=== PATIENT | female | born 1995 | race Caucasian/White ===

== ENCOUNTER 2022-10-15 00:06 | Emergency (ER) | payer OTHER, SELFPAY ==
[2022-10-15 00:20] VITALS: BP 167/115; PULSE 94; RESP 16; TEMP 36.7; O2SAT 100; BMI 28.8
[2022-10-15 01:03] LABS: Basophils Percent Auto 0.4 % (0.2-2.0); Eosinophils Absolute Auto 0.3 10^3/uL (0.0-0.7); Eosinophils Percent Auto 3.6 % (0.9-7.0); Hemoglobin 11.5 g/dL (12.0-16.0); Immature Granulocytes Abs Auto 0.02 10^3/uL (0.00-0.03); Immature Granulocytes Pct Auto 0.2 % (0.0-0.5); Lymphocytes Absolute Auto 2.6 10^3/uL (1.2-3.8); Mean Corpuscular HGB Conc 32.9 g/dL (29.9-35.2); Mean Corpuscular Hemoglobin 29.2 pg (26.7-34.0); Mean Corpuscular Volume 88.8 fL (81.0-99.0); Monocytes Absolute Auto 0.7 10^3/uL (0.3-0.8); Monocytes Percent Auto 8.6 % (1.7-12.0); Neutrophils Absolute Auto 4.7 10^3/uL (1.4-6.5); Neutrophils Percent Auto 56.2 % (43.0-75.0); Platelet Count 318 10^3/uL (150-450); Red Blood Count 3.94 10^6/uL (4.20-5.40); Red Cell Distribution Width 12.6 % (11.0-15.0); White Blood Count 8.4 10^3/uL (4.0-11.0)
[2022-10-15 01:16] LABS: Alanine Aminotransferase 59 U/L (14-59); Albumin Level 3.6 g/dL (3.4-5.0); Alkaline Phosphatase 86 U/L (46-116); Anion Gap 9.5; Aspartate Amino Transferase 14 U/L (15-37); BUN Creatinine Ratio 8.3; Bilirubin Total 0.1 mg/dL (0.2-1.0); Calcium 8.3 mg/dL (8.5-10.1); Carbon Dioxide 27.9 mmol/L (21.0-32.0); Chloride 106 mmol/L (98-107); Estimated GFR (African America >60 (>=60); Estimated GFR (Non-African Ame >60 (>=60); Globulin 3.7 g/dL; Glucose 130 mg/dL (74-106); Potassium 3.4 mmol/L (3.5-5.1); Sodium 140 mmol/L (136-145); Total Protein 7.3 g/dL (6.4-8.2)
--- NOTE | 2022-10-15 02:35 | ED_ITS ---
HPI - Female Genitourinary General Chief complaint: Urogenital-Female Stated complaint: ACTIVE BLEEDING AFTER CERVICAL BIOPSY Time Seen by Provider: 10/15/22 00:47 Source: patient Mode of arrival: walk-in History of Present Illness HPI Narrative: The patient is coming to us with vaginal bleeding that started after she had a cervical colposcopy almost 48 hours ago, she has been changing pads almost every 30 min , and has no vaginal bleeding The patient mentioned that she had a initial biopsy that was suspicious for possible cancer and that when she had a multiple biopsy on almost 4 according to her after which she started having bleeding The patient denies any cramping she also denies any dizziness or shortness of breath, but she has been passing clots excessively and some of them are big Related Data Allergies Allergy/AdvReac Type Severity Reaction Status Date / Time No Known Drug Allergies Allergy Verified 10/15/22 00:28 Review of Systems ROS Status of ROS 10 or more systems reviewed and unremarkable except as noted in history and below PFSH PFS Social History Smoking status: Current every day smoker Exam Narrative Exam Narrative: Nurses notes and vital signs reviewed and patient is not hypoxic. General: Well-appearing and in no apparent distress. Skin: Warm, dry, no pallor noted. No rash. Head: Normocephalic, atraumatic. Neck: Supple, non-tender. Eye: Pupils are equal, round and EOMI. No scleral icterus. Ears, Nose, Mouth, and Throat: TM are clear, no nasal mucosal hypertrophy. Oral mucosa is moist, no posterior oropharynx erythema, uvula is mid-line Cardiovascular: Regular Rate and Rhythm without murmur, gallop or rub. Respiratory: No accessory muscle use or respiratory distress. Lungs are clear to auscultation, no wheezing, rales or rhonchi Chest Wall: no tenderness Back: No midline thoracic or lumbar vertebral tenderness. No CVA tenderness Musculoskeletal: normal ROM, no calf or popliteal tenderness, no lower extremity edema/swelling GI: Abdomen is soft, non-distended. Normal bowel sounds. No masses appreciated. No tenderness to palpation. No rebound, guarding, or rigidity noted. Neurological: A&O x4. No cranial nerve dysfunction observed. No truncal ataxia. Moves all extremities. Sensation intact. Psychiatric: Cooperative and interactive. Normal mood and affect. Vaginal exam The patient had blood covering her external genitalia but after cleaning that and speculum placed there was a big 20 cc of blood clot placed , the sepculum removed and clot came out , cervic shows bleeding coming from the lower half of the cervix with scarring of the right lower quadrant of the cervix and vagna dependent part form clot very fast while examining Constitutional Vital Signs, click to edit/add: Last Vital Signs Temp 98.1 F 10/15/22 00:20 Pulse 89 10/15/22 04:10 Resp 16 10/15/22 04:10 BP 139/96 H 10/15/22 04:10 Pulse Ox 97 10/15/22 04:10 O2 Del Method Room Air 10/15/22 04:10 Course Vital Signs Vital signs: Vital Signs Temperature 98.1 F 10/15/22 00:20 Pulse Rate 94 H 10/15/22 00:20 Respiratory Rate 16 10/15/22 00:20 Blood Pressure 167/115 H 10/15/22 00:20 Pulse Oximetry 100 10/15/22 00:20 Oxygen Delivery Method Room Air 10/15/22 00:20 Temperature 98.1 F 10/15/22 00:20 Pulse Rate 89 10/15/22 04:10 Respiratory Rate 16 10/15/22 04:10 Blood Pressure 139/96 H 10/15/22 04:10 Pulse Oximetry 97 10/15/22 04:10 Oxygen Delivery Method Room Air 10/15/22 04:10 MDM - Female Genitourinary MDM Narrative Medical decision making narrative: CBC and CMP shows hg of 11 no tachycardia or hypotension at the moment but the bleeding is moderate to heavy i spoke with Dr Chaney in [facility] and he advised applying Monsel solution ( which we didnt have availabe ) then applied lidocaine with epi instead ( 3 cc over cotton swab ) and applied a tampoon that was not capable of reducing the bleeding , pt still has blood leaking when the labia minora evlauted pt will be tranferred to [facility] ED where she was accepted by Dr Francis and Dr Shiv lakhani to evaluate her for bleeding control Lab Data Labs: Lab Results 10/15/22 Range/Units 00:58 WBC 8.4 (4.0-11.0) 10^3/uL RBC 3.94 L (4.20-5.40) 10^6/uL Hgb 11.5 L (12.0-16.0) g/dL Hct 35.0 L (36.0-48.0) % MCV 88.8 (81.0-99.0) fL MCH 29.2 (26.7-34.0) pg MCHC 32.9 (29.9-35.2) g/dL RDW 12.6 (11.0-15.0) % Plt Count 318 (150-450) 10^3/uL MPV 10.0 (9.5-13.5) fL Neut % (Auto) 56.2 (43.0-75.0) % Lymph % (Auto) 31.0 (20.5-60.0) % [place] % (Auto) 8.6 (1.7-12.0) % Eos % (Auto) 3.6 (0.9-7.0) % Baso % (Auto) 0.4 (0.2-2.0) % Neut # (Auto) 4.7 (1.4-6.5) 10^3/uL Lymph # (Auto) 2.6 (1.2-3.8) 10^3/uL [place] # (Auto) 0.7 (0.3-0.8) 10^3/uL Eos # (Auto) 0.3 (0.0-0.7) 10^3/uL Baso # (Auto) 0.0 (0.0-0.1) 10^3/uL Abs Immat Gran (auto) 0.02 (0.00-0.03) 10^3/uL Imm/Tot Granulo (auto) 0.2 (0.0-0.5) % Sodium 140 (136-145) mmol/L Potassium 3.4 L (3.5-5.1) mmol/L Chloride 106 (98-107) mmol/L Carbon Dioxide 27.9 (21.0-32.0) mmol/L Anion Gap 9.5 BUN 8.0 (7.0-18.0) mg/dL Creatinine 0.96 (0.55-1.02) mg/dL Est GFR ( Amer) >60 (>=60) Est GFR (Non-Af Amer) >60 (>=60) BUN/Creatinine Ratio 8.3 Glucose 130 H (74-106) mg/dL Calcium 8.3 L (8.5-10.1) mg/dL Total Bilirubin 0.1 L (0.2-1.0) mg/dL AST 14 L (15-37) U/L ALT 59 (14-59) U/L Alkaline Phosphatase 86 (46-116) U/L Total Protein 7.3 (6.4-8.2) g/dL Albumin 3.6 (3.4-5.0) g/dL Globulin 3.7 g/dL Albumin/Globulin Ratio 1.0 Discharge Plan Discharge Chief Complaint: Urogenital-Female Clinical Impression: Vaginal bleeding Patient Disposition: [facility] Time of Disposition Decision: 04:00 Discharge Location: [facility] Discharge location: to Emergency department Condition: Good Mode of Transportation: EMS
--- NOTE | 2022-10-15 03:05 | PC.NURSE ---
This RN in patient room to assist Dr Butts with pelvic exam.
[2022-10-15] MEDS: LIDOCAINE HCL 1%-EPINEPHRINE 1:100,000 20 ML MDV INJ (03:14)
[2022-10-15 04:10] VITALS: BP 139/96; PULSE 89; RESP 16; O2SAT 97
== END 2022-10-15 05:30 | disposition short-term general hospital (02) ==
PROVIDERS: Emergency Provider Emergency Medicine
DX: N93.9 Abnormal uterine and vaginal bleeding, unspecified (principal); Z98.890 Other specified postprocedural states; F17.210 Nicotine dependence, cigarettes, uncomplicated
CPT/HCPCS: 36415; 80053; 85025; 99285